=== PATIENT | female | born 1980 | race Caucasian/White ===

== ENCOUNTER 2018-11-03 23:46 | Emergency (ER) | payer BC ==
[2018-11-04] MEDS ORDERED: LIDOCAINE 1% INJ-PF (10 MG/ML) 30 ML SDV INJ ONE (01:15)
--- NOTE | 2018-11-04 02:49 | ER Document Report ---
HPI - HPI Time Seen by Provider: 11/04/18 01:11 Pain Level: 2 Context: Patient is a 38 year old female that comes to the Emergency Department for chief complaint of laceration to the left index finger. She states that she was cutting with a knife, cutting watermelon, slipped, accidentally cut herself. Denies other injuries. Tetanus is up-to-date. - REPRODUCTIVE Reproductive: DENIES: : Past Medical History - General Information source: Patient - Social History Smoking Status: Never Smoker Frequency of alcohol use: None Drug Abuse: None Lives with: Family Family History: Reviewed & Not Pertinent - Medical History Medical History: Negative - Immunizations Immunizations up to date: Yes Hx Diphtheria, Pertussis, Tetanus Vaccination: Yes Vertical Provider Document - CONSTITUTIONAL General Appearance: WD/WN, No Apparent Distress - INFECTION CONTROL TRAVEL OUTSIDE OF THE [place] IN LAST 30 DAYS: No - HEENT HEENT: Atraumatic, Normocephalic - NECK Neck: Normal Inspection - RESPIRATORY Respiratory: Breath Sounds Normal, No Respiratory Distress - CARDIOVASCULAR Cardiovascular: Regular Rate, Regular Rhythm - GI/ABDOMEN Gastrointestinal: Abdomen Soft, Abdomen Non-Tender - BACK Back: Normal Inspection - MUSCULOSKELETAL/EXTREMETIES Musculoskeletal/Extremeties: Tender - There is a horizontal laceration over the dorsal aspect of the left index finger just past the PIP, 1.5 cm in length, partial-thickness. Explored, no evidence of tendon, large vessel, or nerve injury. Normal strength against resistance in flexion and extensions, normal capillary refill and sensation. Course - Re-evaluation Re-evalutation: Patient declined x-ray. Wound was carefully explored, there is no evidence of concerning injury. Irrigated, repaired. Because of the hand injury I did discuss possible prophylaxis, patient requests this. She also requests Diflucan for afterwards. Discussed expectations, follow-up, return precautions. Patient states understanding and agreement. - Vital Signs Vital signs: Temp Pulse Resp BP Pulse Ox 98.5 F 79 18 131/82 H 98 11/04/18 00:31 11/04/18 00:31 11/04/18 00:31 11/04/18 00:31 11/04/18 00:31 Procedures - Laceration/Wound Repair Left index finger Wound length (cm): 1.5 Wound's Depth, Shape: Linear Laceration pre-procedure: Sterile PPE donned, Sterile drapes applied, Shur-Clens applied Anesthetic type: 1% Lidocaine Volume Anesthetic (mLs): 3 Wound explored: Clean, No foreign body removed Irrigated w/ Saline (mLs): 50 Wound Repaired With: Sutures Suture Size/Type: 5:0, Nylon Number of Sutures: 3 Layer Closure?: No Post-procedure NV exam normal: Yes Complications: No Discharge - Discharge Clinical Impression: Laceration of left index finger Qualifiers: Encounter type: initial encounter Damage to nail status: without damage Foreign body presence: without foreign body Qualified Code(s): S61.211A - Laceration wit hout foreign body of left index finger without damage to nail, initial encounter Condition: Stable Disposition: HOME, SELF-CARE Additional Instructions: The sutures need to be removed in about 7 days. Keep clean, clean with soap and water, dab dry. Avoid soaking or scrubbing. You can apply thin film of topical antibiotic over the area. Take antibiotic as prescribed to avoid infection. Take Diflucan after completion to avoid yeast infection. Return for signs of infection including pain, swelling, redness, discolored discharge, fever/chills, or any other concerning symptoms. Prescriptions: Cephalexin Monohydrate [Keflex 500 mg Capsule] 500 mg PO TID 5 Days #15 capsule Fluconazole [Diflucan] 150 mg PO ONCE PRN #1 tablet PRN Reason: Forms: Return to Work
[2018-11-04 03:30] VITALS: BP 119/81
== END 2018-11-04 03:28 | disposition home or self-care (01) ==
LOC: ER 23:46
DX: S61.211A Laceration without foreign body of left index finger without damage to nail, initial encounter (principal); W26.0XXA Contact with knife, initial encounter
CPT/HCPCS: 99282; 12001; J3490